=== PATIENT | female | born 1990 | race Caucasian/White ===

== ENCOUNTER 2023-01-11 18:41 | Emergency (ER) | payer MEDICAID ==
[~2023-01-11] VITALS: Ht 170.2 cm; Wt 90.3 kg
[2023-01-11 18:45] VITALS: BP 124/70; PULSE 82; RESP 16; TEMP 97; O2SAT 99
[2023-01-11] MEDS ORDERED: ACET-10509 PO (21:11)
[2023-01-11 21:20] VITALS: BP 144/71; PULSE 82; RESP 16; TEMP 97; O2SAT 99
== END 2023-01-11 21:20 | disposition home or self-care (01) ==
LOC: MED 18:41
DX: O9A.212 Injury, poisoning and certain other consequences of external causes complicating pregnancy, second trimester (principal); S92.521A Displaced fracture of middle phalanx of right lesser toe(s), initial encounter for closed fracture; Z3A.22 22 weeks gestation of pregnancy; Z86.73 Personal history of transient ischemic attack (TIA), and cerebral infarction without residual deficits; W22.8XXA Striking against or struck by other objects, initial encounter; Y93.89 Activity, other specified; Y92.89 Other specified places as the place of occurrence of the external cause; Y99.8 Other external cause status
CPT/HCPCS: 73660; 99283